=== PATIENT | female | born 1995 | race Caucasian/White ===

== ENCOUNTER → 2021-12-30 | Outpatient (CLI) | payer OTHER ==
[~2021-12-30] MED LIST: Crutch1 EACH MISC; MEDR150I IM; Norco 5-325 Ta1 EACH PO; ONDA4ODT MM
[2021-12-31 09:06] LABS: HIV AB/P24 AG SCREEN Non Reactive (Non Reactive)
[2021-12-31 09:51] LABS: Candida species (DNA Probe) Negative (NEGATIVE); G. vaginalis (DNA Probe) Negative (NEGATIVE); T. vaginalis (DNA Probe) Negative (NEGATIVE)
[2021-12-31 10:10] LABS: HBSAG SCREEN Negative (Negative); HCV ANTIBODY <0.1 (0.0-0.9)
[2022-01-02 02:08] LABS: CHLAMYDIA BY NAA Negative (Negative); GONOCOCCUS BY NAA Negative (Negative); TRICH VAG BY NAA Negative (Negative)
== END ==
LOC: PLD 16:35
PROVIDERS: Nurse Practitioner Family; Registered Nurse Community Health
DX: Z11.3 Encounter for screening for infections with a predominantly sexual mode of transmission (principal); Z11.4 Encounter for screening for human immunodeficiency virus [HIV]; Z11.59 Encounter for screening for other viral diseases; Z20.2 Contact with and (suspected) exposure to infections with a predominantly sexual mode of transmission
CPT/HCPCS: 86592; 86803; 87340; 87389; 87480; 87491; 87510; 87591; 87660; 87661

== ENCOUNTER 2022-03-20 16:11 | Emergency (ER) | payer OTHER ==
[~2022-03-20] VITALS: Ht 167.6 cm; Wt 56.7 kg
[~2022-03-20 16:11] MED LIST changes: -ONDA4ODT MM
[2022-03-20] MEDS ORDERED: ONDA4ODT MM (17:41)
== END 2022-03-20 18:00 | disposition home or self-care (01) ==
LOC: ER 16:11
DX: U07.1 COVID-19 (principal); Z79.899 Other long term (current) drug therapy
CPT/HCPCS: 99282